=== PATIENT | male | born 1935 | race Caucasian/White ===

== ENCOUNTER 2022-06-01 02:00 | Inpatient (IN) | payer MEDICARE ==
[~2022-06-01] VITALS: Ht 175.3 cm; Wt 82.2 kg
--- NOTE | 2022-06-01 02:18 | NUR ---
PATIENT BIB [employer] FROM HOME, PLACED INTO ROOM #3, ASSISTED INTO GOWN, PLACED ON MONITOR, INFORMED OF PLAN OF CARE, BEDSIDE EKG IN PROGRESS FOR MD REVIEW. #20G ESTABLISHED IN LEFT AC, BLOOD COLLECTED AND SENT TO LAB. SIDE RAILS UP WILL CONTINUE TO MONITOR.
--- NOTE | 2022-06-01 02:21 | NUR ---
AT BEDSIDE FOR EXAM.
[2022-06-01] MEDS ORDERED: BRIM5DRO2 EACHEYE (02:23)
[2022-06-01] MEDS ORDERED: LATA2.5D15 OP (02:23)
[2022-06-01] MEDS ORDERED: HYDR25TA4 PO (02:23)
[2022-06-01] MEDS ORDERED: METO-356 PO (02:23)
[2022-06-01] MEDS ORDERED: BRIN10DR EACHEYE (02:23)
[2022-06-01] MEDS ORDERED: FINA5TAB11 PO (02:23)
[2022-06-01] MEDS ORDERED: ALLO300T2 PO (02:23)
[2022-06-01] MEDS ORDERED: APIX5TAB PO (02:23)
[2022-06-01] MEDS ORDERED: LISI40TA13 PO (02:23)
[2022-06-01] MEDS ORDERED: TAMS-3 PO (02:23)
[2022-06-01] MEDS ORDERED: PRAV20TA4 PO (02:23)
[2022-06-01] MEDS ORDERED: PRED5DRO4 EACHEYE (02:25)
[2022-06-01] MEDS ORDERED: CLONIDINE HCL 0.1 MG TABLET PO ONE (02:30)
[2022-06-01] MEDS ORDERED: CLONIDINE HCL 0.1 MG TABLET ONE (02:36)
--- NOTE | 2022-06-01 02:40 | NUR ---
LAB AT BEDSIDE.
--- NOTE | 2022-06-01 02:47 | NUR ---
PATIENT MEDICATED PER ORDER AND REPOSITIONED FOR COMFORT.
[2022-06-01 02:48] LABS: HEMATOCRIT 47.8 % (36.7-47.1); MEAN CORPUSCULAR HEMOGLOBIN 30.5 uug (23.8-33.4); MEAN CORPUSCULAR VOLUME 93.8 fL (73.0-96.2); PLATELET COUNT (AUTO) 208 K/uL (152-348)
--- NOTE | 2022-06-01 02:50 | NUR ---
RADIOLOGY AT BEDSIDE.
[2022-06-01 03:04] LABS: CARBON DIOXIDE 29 mmol/L (21-32); CHLORIDE 100 mmol/L (98-107); CREATININE 1.1 mg/dL (0.6-1.3); GLUCOSE 100 mg/dL (74-106); POTASSIUM 3.1 mmol/L (3.5-5.1); UREA NITROGEN, BLOOD 26 mg/dL (7-18)
[2022-06-01] MEDS ORDERED: IV NS 1000 ML 1,000 ML IV ONE (03:15)
[2022-06-01] MEDS ORDERED: FUROSEMIDE 40 MG/4 ML VIAL IV ONE (03:15)
[2022-06-01 03:17] LABS: ALANINE AMINOTRANSFERASE 30 U/L (16-63); ALKALINE PHOSPHATASE 77 U/L (50-136); ASPARTATE AMINOTRANSFERASE 30 U/L (15-37); BILIRUBIN,DIRECT 0.2 mg/dL (0.0-0.2); BILIRUBIN,TOTAL 0.9 mg/dL (0.2-1.0); TOTAL PROTEIN, SERUM 7.6 g/dL (6.4-8.2)
[2022-06-01] MEDS ORDERED: FUROSEMIDE 40 MG/4 ML VIAL ONE (03:24)
[2022-06-01] MEDS ORDERED: POTASSIUM BICARBONATE/CIT AC 25 MEQ TABLET.EFF PO ONE (03:45)
[2022-06-01] MEDS ORDERED: POTASSIUM BICARBONATE/CIT AC 25 MEQ TABLET.EFF ONE (03:49)
[2022-06-01] MEDS ORDERED: MAGNESIUM SULFATE/D5W 300 ML ONE (03:49)
[2022-06-01 03:50] LABS: *BILIRUBIN,URIN NEGATIVE (NEGATIVE); *CLARITY,URINE CLEAR (CLEAR); *COLOR,URINE YELLOW (YELLOW); *KETONES,URINE NEGATIVE (NEGATIVE); *UROBILINOGEN,URINE 0.2 E.U./dl (NORMAL); LEUKOCYTE ESTERASE ,URINE NEGATIVE (NEGATIVE); NITRITE, URINE NEGATIVE (NEGATIVE); PH,URINE 5.5 (5.0-8.0); UGLUCOSE NEGATIVE (NEGATIVE)
[2022-06-01 03:51] LABS: *BLOOD, URINE NEGATIVE (NEGATIVE)
--- NOTE | 2022-06-01 04:12 | NUR ---
ambulated to bathroom and back to bed.
[2022-06-01] MEDS: MAGNESIUM SULFATE/D5W 100 ML IV SCH ×4 (04:37→06:38)
--- NOTE | 2022-06-01 05:36 | NUR ---
Patient sitting up in bed requesting to talk with the ER MD, informed MD. No s/so of any distress noted IVF continue as per order.
--- NOTE | 2022-06-01 06:12 | NUR ---
Called [facility] to page Dr. Welch.
--- NOTE | 2022-06-01 06:22 | NUR ---
Patient informed that he will be admitted to the hospital, going to room #321, will call report at this time.
--- NOTE | 2022-06-01 06:25 | NUR ---
Attempted to call report, floor unable to accept at this time.
--- NOTE | 2022-06-01 06:38 | NUR ---
Morning MD at bedside talkin with patient.
--- NOTE | 2022-06-01 07:28 | NUR ---
Received patient awake in bed. AO x 4. No acute distress noted. No complaints at this time. Safety precautions in place. Will continue to monitor.
--- NOTE | 2022-06-01 08:00 | NUR ---
Gave report to MARK Kelly.
--- NOTE | 2022-06-01 09:33 | NUR ---
Patient brought to room 321 in telemetry unit accompanied by RN.
--- NOTE | 2022-06-01 10:11 | NUR ---
Rcvd pt. from ER nurse Andrew via wheel chair. Pt. was assessed head to toe. VS WNL. Body check done. Belongings accounted for. Keep pt. in comfortable position. Bed in low position. Call light with in reach. Urinal in the bedside.
[2022-06-01 10:21] VITALS: BP 141/74
[2022-06-01] MEDS ORDERED: REMEDY ESSENTIAL ZINC PASTE 113 GM TP PRN (10:30)
[2022-06-01] MEDS ORDERED: ONDANSETRON 4 MG/2 ML VIAL IV PRN (10:30)
[2022-06-01] MEDS ORDERED: MAGNESIUM HYDROXIDE 30 ML LIQUID UDC PO PRN (10:30)
[2022-06-01] MEDS ORDERED: ACETAMINOPHEN 325 MG TABLET PO PRN (10:30)
[2022-06-01] MEDS ORDERED: IV NS 1000 ML 1,000 ML IV PRN (10:30)
[2022-06-01] MEDS: LISINOPRIL 20 MG TABLET PO SCH (11:13)
--- NOTE | 2022-06-01 14:00 | NUR ---
Called Sina (son, pt's DPOA) to clarify pt's code status. Sina said whatever his Dad wishes. Pt. AAOx4. Pt said he wants DNR if in case something bad happen. The son faxed the documents as a proof that he is his Dad's DPOA.
[2022-06-01 16:00] VITALS: BP 142/86
[2022-06-01 16:16] LABS: CREATININE 1.1 mg/dL (0.6-1.3); POTASSIUM 3.7 mmol/L (3.5-5.1)
[2022-06-01 16:29] LABS: MAGNESIUM 2.1 mg/dL (1.8-2.4)
[2022-06-01] MEDS: DORZOLAMIDE 2% OPHT DROP 10 ML BOTTLE EACHEYE SCH (17:41)
[2022-06-01] MEDS: APIXABAN 5 MG TABLET PO SCH (17:43)
--- NOTE | 2022-06-01 18:21 | NUR ---
AAOX4. No SOB noted. Pt. ate his meal almost 100 %. IV Left ac #20 patent and intact. Echocardiogram done but still awaiting for the results.
--- NOTE | 2022-06-01 19:30 | NUR ---
Received patient sitting upright in bed. AAOx4. In no acute distress. Denies any pain or SOB. IV site on left AC intact and patent. Will start IV fluids. A Fib. on tele with HR of 65/min. Needs assessed and attended to. Safety measure initiated and call light within reached.
[2022-06-01 20:00] VITALS: BP 148/75
[2022-06-01] MEDS: FINASTERIDE 5 MG TABLET PO SCH (20:15)
[2022-06-01] MEDS: TAMSULOSIN HCL 0.4 MG CAP.SR.24H PO SCH (20:15)
[2022-06-01] MEDS: METOPROLOL SUCCINATE XL 25 MG TAB.SR.24H PO SCH (20:16)
[2022-06-01] MEDS: LATANOPROST OPHT DROP 2.5 ML BOTTLE OP SCH (20:16)
[2022-06-01] MEDS: DOCUSATE SODIUM 250 MG CAPSULE PO SCH (20:21)
[2022-06-02] VITALS: BP 138/89
[2022-06-02 04:00] VITALS: BP 103/59
--- NOTE | 2022-06-02 05:19 | NUR ---
Slept well during the night. Denies any pain or SOB. No complain of chest pain. A. fib with HR of 48/min. IVF infusing. Needs attended to and met. Safety measure maintained and call light within reached.
[2022-06-02 06:56] LABS: HEMATOCRIT 41.9 % (36.7-47.1); MEAN CORPUSCULAR HEMOGLOBIN 30.1 uug (23.8-33.4); MEAN CORPUSCULAR VOLUME 93.6 fL (73.0-96.2); PLATELET COUNT (AUTO) 189 K/uL (152-348)
[2022-06-02 07:22] LABS: CREATININE 1.2 mg/dL (0.6-1.3); MAGNESIUM 1.8 mg/dL (1.8-2.4); PHOSPHOROUS 3.1 mg/dL (2.5-4.9); POTASSIUM 3.3 mmol/L (3.5-5.1)
[2022-06-02] MEDS ORDERED: HYDROCHLOROTHIAZIDE 25 MG TABLET PO SCH (09:00)
[2022-06-02] MEDS: LISINOPRIL 20 MG TABLET PO SCH (09:13)
[2022-06-02] MEDS: ALLOPURINOL 300 MG TABLET PO SCH (09:13)
[2022-06-02] MEDS: APIXABAN 5 MG TABLET PO SCH ×2 (09:14→18:11)
[2022-06-02] MEDS: prednisoLONE ACET 1% OPHT DROP 5 ML BOTTLE EACHEYE SCH (09:14)
[2022-06-02] MEDS: DORZOLAMIDE 2% OPHT DROP 10 ML BOTTLE EACHEYE SCH ×2 (09:14→18:12)
[2022-06-02] MEDS ORDERED: POTASSIUM CHLORIDE 20 MEQ TAB.PRT.SR PO ONE (10:00)
[2022-06-02 11:45] LABS: EOSINOPHILS % (MANUAL) 4 % (0-8); LYMPHOCYTES % (MANUAL) 27 % (20-40); MONOCYTES % (MANUAL) 13 % (2-10); NEUTROPHILS % (MANUAL) 56 % (42-75)
[2022-06-02 11:47] VITALS: BP 157/94
[2022-06-02 16:01] VITALS: BP_SYST 154; BP_SYST 179; BP_DIAS 92; BP_DIAS 98
[2022-06-02 16:27] VITALS: BP 154/92
[2022-06-02] MEDS: hydrALAZINE HCL 25 MG TABLET PO PRN (16:27)
--- NOTE | 2022-06-02 19:38 | NUR ---
Received patient in his room. AAOx4. In no acute distress. no complain of any pain or SOB. IV site on left forearm intact and patent. A Fib. on tele with HR of 94/min. Needs assessed and attended to. Safety measure initiated and call light within reached.
[2022-06-02 20:10] VITALS: BP 167/94
[2022-06-02] MEDS: FINASTERIDE 5 MG TABLET PO SCH (20:12)
[2022-06-02] MEDS: LATANOPROST OPHT DROP 2.5 ML BOTTLE OP SCH (20:13)
[2022-06-02] MEDS: DOCUSATE SODIUM 250 MG CAPSULE PO SCH (20:13)
[2022-06-02] MEDS: TAMSULOSIN HCL 0.4 MG CAP.SR.24H PO SCH (20:13)
[2022-06-02] MEDS: METOPROLOL SUCCINATE XL 25 MG TAB.SR.24H PO SCH (20:14)
[2022-06-02] MEDS: MAG HYDROX/AL HYDROX/SIMETH 30 ML LIQUID UDC PO PRN (21:00)
[2022-06-03 00:30] VITALS: BP 178/98
[2022-06-03] MEDS: hydrALAZINE HCL 25 MG TABLET PO PRN ×2 (00:43→16:19)
[2022-06-03] MEDS: MAG HYDROX/AL HYDROX/SIMETH 30 ML LIQUID UDC PO PRN ×2 (04:39→10:17)
[2022-06-03 04:41] VITALS: BP 137/74
--- NOTE | 2022-06-03 05:13 | NUR ---
A. fib on tele with HR of 71/min. IV site on left FA intact and patent. Needs attended to and met. safety measure maintained and call light within reached.
[2022-06-03 06:57] LABS: HEMATOCRIT 43.1 % (36.7-47.1); MEAN CORPUSCULAR HEMOGLOBIN 30.5 uug (23.8-33.4); MEAN CORPUSCULAR VOLUME 93.6 fL (73.0-96.2); PLATELET COUNT (AUTO) 185 K/uL (152-348)
[2022-06-03] MEDS ORDERED: AMLODIPINE 5 MG TABLET PO SCH (09:00)
--- NOTE | 2022-06-03 09:00 | NUR ---
received pt on bed. in no acute distress. denies any pain. elevated bp noted. md aware.
[2022-06-03] MEDS: ALLOPURINOL 300 MG TABLET PO SCH (09:54)
[2022-06-03] MEDS: LISINOPRIL 20 MG TABLET PO SCH (09:55)
[2022-06-03] MEDS: DORZOLAMIDE 2% OPHT DROP 10 ML BOTTLE EACHEYE SCH ×2 (09:55→17:00)
[2022-06-03] MEDS: prednisoLONE ACET 1% OPHT DROP 5 ML BOTTLE EACHEYE SCH (09:55)
[2022-06-03] MEDS: APIXABAN 5 MG TABLET PO SCH ×2 (09:56→17:00)
[2022-06-03] MEDS ORDERED: AMLODIPINE 5 MG TABLET PO ONE (11:30)
[2022-06-03 11:57] VITALS: BP 151/84
[2022-06-03 12:22] LABS: CARBON DIOXIDE 26 mmol/L (21-32); CHLORIDE 102 mmol/L (98-107); CREATININE 1.1 mg/dL (0.6-1.3); GLUCOSE 78 mg/dL (74-106); PHOSPHOROUS 2.1 mg/dL (2.5-4.9); POTASSIUM 3.8 mmol/L (3.5-5.1); UREA NITROGEN, BLOOD 19 mg/dL (7-18)
[2022-06-03 12:36] LABS: ALANINE AMINOTRANSFERASE 23 U/L (16-63); ALKALINE PHOSPHATASE 62 U/L (50-136); ASPARTATE AMINOTRANSFERASE 21 U/L (15-37); BILIRUBIN,TOTAL 0.9 mg/dL (0.2-1.0)
[2022-06-03 12:37] LABS: CHOLESTEROL 127 mg/dL (<200); HDL CHOLESTEROL 40 mg/dL (40-60); TOTAL PROTEIN, SERUM 6.4 g/dL (6.4-8.2); TRIGLYCERIDES 100 MG/DL (30-150)
[2022-06-03 12:51] LABS: THYROID STIMULATING HORMONE 2.793 mIU/mL (0.358-3.740)
[2022-06-03] MEDS ORDERED: AMLO10TA59 PO (13:38)
[2022-06-03 14:12] VITALS: BP 155/94
[2022-06-03] MEDS ORDERED: NEUTRA PHOS PACKET PO ONE (15:00)
--- NOTE | 2022-06-03 15:11 | NUR ---
pt is medically clear for discharge. pt is aware. 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
[2022-06-03 16:19] VITALS: BP 160/94
--- NOTE | 2022-06-03 17:30 | NUR ---
pt is discharge. pt will go back to [facility]. pt is aox4. ambulatory. denies any chest pain and dizziness. pt was pickup by [facility] ambulance. family aware. all belongings accounted for. iv access removed. exit care provided.
[2022-06-04] MEDS ORDERED: AMLODIPINE 10 MG TABLET PO SCH (09:00)
== END 2022-06-03 17:30 | DRG 304 ==
LOC: ER 02:02 → TELE3 08:59
PROVIDERS: ADMIT Internal Medicine; ATTEND Internal Medicine
DX: I16.0 Hypertensive urgency (principal); N17.0 Acute kidney failure with tubular necrosis; I48.20 Chronic atrial fibrillation, unspecified; E87.6 Hypokalemia; E86.0 Dehydration; F41.9 Anxiety disorder, unspecified; N40.0 Benign prostatic hyperplasia without lower urinary tract symptoms; M10.9 Gout, unspecified; E78.5 Hyperlipidemia, unspecified; Z79.01 Long term (current) use of anticoagulants; E83.42 Hypomagnesemia; Z74.09 Other reduced mobility; E83.52 Hypercalcemia; H40.9 Unspecified glaucoma; I11.9 Hypertensive heart disease without heart failure; I35.8 Other nonrheumatic aortic valve disorders; T50.2X5A Adverse effect of carbonic-anhydrase inhibitors, benzothiadiazides and other diuretics, initial encounter; Y92.89 Other specified places as the place of occurrence of the external cause
CPT/HCPCS: 36415; 70030-TC; 71045; 82330; 83735; 83970; 84100; 84443; 84484; 85025; 87040; 93005; 93307; A4663; G0378; J1940; J2650; J3475; J7040